=== PATIENT | male | born 1980 | race Caucasian/White ===

== ENCOUNTER → 2020-11-16 15:32 | Outpatient (CLI) | payer BC, SELFPAY ==
--- NOTE | 2020-11-16 15:36 | RAD_ITS ---
EXAM: XR LUMBOSACRAL SPINE, 2 OR 3 VIEWS : 1980 CLINICAL INDICATION: BACK PAIN TECHNIQUE: Frontal and lateral views of the lumbar spine and sacrum. This report was created using [facility] report [employer] technology. COMPARISON: None. FINDINGS: VERTEBRAE: Unremarkable. Preserved vertebral body height. No fracture. No spondylolisthesis. Preservation of the normal lumbar lordosis. No significant facet arthropathy. DISC SPACES: No acute findings. Disc spaces are maintained. GASTROINTESTINAL TRACT: Unremarkable as visualized. Included bowel gas pattern is non-obstructive. RAD/Lumbar Spine 2 or 3 Views IMPRESSION: No evidence of lumbar spinal fracture or spondylolisthesis. at 1609 Reported and signed by: Dillan Watkins MD Electronically Signed: Dillan Watkins MD at 16:08 EDT Tel , Service support ,
== END ==
PROVIDERS: PCP Family Medicine; Visit Provider Anesthesiology
DX: M51.16 Intervertebral disc disorders with radiculopathy, lumbar region (principal)
CPT/HCPCS: 72100

== ENCOUNTER → 2020-12-06 16:56 | Outpatient (CLI) | payer BC, SELFPAY ==
--- NOTE | 2020-12-06 17:20 | MRI_ITS ---
ACR Level 3 findings have been noted. An addendum which confirms receipt of the report will follow. STUDY: MRI LUMBAR SPINE WITHOUT CONTRAST REASON FOR EXAM: Male, 40 years old. BACK PAIN INTO R LEG, NUMBNESS R FOOT TECHNIQUE: Standardized fat and water weighted pulse sequences were obtained in the sagittal and axial planes. COMPARISON: Lumbar spine radiographs 11/16/2020. FINDINGS: T11-T12 and T12-L1: (Sagittal only). Normal endplates. Normal disc height, hydration and morphology. No ventral extradural defect. Normal central canal and bilateral intervertebral neural foramina. Normal lumbar lordosis. There is no substantial scoliosis. Normal conus medullaris that terminates at the mid L1 vertebral body level. L1-2: Normal endplates. Normal disc height, hydration and morphology. Normal bilateral facet joints. Normal central canal and bilateral lateral recesses. Normal bilateral intervertebral neural foramina. L2-3: Normal endplates. Normal disc height, hydration and morphology. Normal bilateral facet joints. Normal central canal and bilateral lateral recesses. Normal bilateral intervertebral neural foramina. L3-4: Normal endplates. Normal disc height, hydration and morphology. Normal bilateral facet joints. Normal central canal and bilateral lateral recesses. Normal bilateral intervertebral neural foramina. L4-5: Normal endplates. Normal disc height, hydration and morphology. Normal bilateral facet joints. Normal central canal and bilateral lateral recesses. Normal bilateral intervertebral neural foramina. L5-S1: Minimal MODIC type II degenerative vertebral marrow fatty changes underneath the left side of the vertebral endplates. Moderate disc space height narrowing. Large right sided posterior caudal extruded and sequestered disc fragment causing severe stenosis of the right lateral recess and posterior displacement of the right S1 nerve root sleeve. Normal left lateral recess. Moderate asymmetric central canal stenosis due to left lateral displacement of the thecal sac by the large posteriorly extruded and sequestered disc fragment. The transverse canal diameter of the thecal sac is 6 mm. Normal facet joints. Normal bilateral intervertebral neural foramina. Normal visualized sacral ala. Normal visualized paraspinous soft tissue structures. MRI/Spine Lumbar (Routine) IMPRESSION: Large right-sided L5-S1 posterior caudal disc extrusion and sequestration causing posterior displacement of the right S1 nerve root sleeve, severe stenosis of the right lateral recess and moderately pronounced central canal stenosis with left lateral displacement of the thecal sac. The transverse canal diameter of the displaced thecal sac is 6 mm. Electronically Signed: José Luis France MD at 12:06 EDT , Service support ,
== END ==
PROVIDERS: PCP Family Medicine; Visit Provider Anesthesiology
DX: M51.16 Intervertebral disc disorders with radiculopathy, lumbar region (principal); M48.061 Spinal stenosis, lumbar region without neurogenic claudication
CPT/HCPCS: 72148

== ENCOUNTER 2020-12-07 18:25 | Emergency (ER) | payer BC, SELFPAY ==
[2020-12-07 18:26] VITALS: BP 134/102; PULSE 76; RESP 18; TEMP 36.4; O2SAT 99; BMI 25.8
--- NOTE | 2020-12-07 19:34 | EX.ED.DYSGE1 ---
HPI History of Present Illness Chief Complaint: Back Informant: patient Narrative Narrative: Patient presents being referred in by pain management doctors after speaking with the nurse who coordinated with the physician for concerns that he may need emergent back surgery. He reports he woke up a month ago pain in his back with pain and numbness down his right leg to his toe. There is weakness with plantar flexion. He states his back pain has improved since. He saw pain management Dr. Canales 2 weeks ago, an MRI was ordered which was obtained yesterday at this facility. He denies any troubles with bowel or bladder. He is able to ambulate however feels weak with plantar flexion. He states he received a call stating immediately to go to the ED. He was following directions. Any past medical history or any back issues in the past. [facility] Medical History Sciatic nerve pain Home Medications diclofenac sodium 75 mg PO BID 12/07/20 [History Last Taken Unknown] methylprednisolone [Medrol (Kyle)] 4 mg PO .asdir #21 tab 12/07/20 [Rx Last Taken Unknown] tizanidine 4 mg PO TID 12/07/20 [History Last Taken Unknown] tramadol 50 mg PO DAILY 12/07/20 [History Last Taken Unknown] Allergy/AdvReac Type Severity Reaction Status Date / Time No Known Allergies Allergy Verified 12/07/20 18:37 Surgical History [place] teeth extracted Social History Smoking Status: Never smoker ROS [facility] ED Constitutional Constitutional ED: Denies chills, fever(s) or sweats Eyes Eyes: Denies change in vision ENT ENT ED: Denies dysphagia or sore throat Cardiovascular Cardiovascular: Denies chest pain, leg edema, palpitations or racing heartbeat Respiratory/Chest Respiratory/Chest: Denies cough, dyspnea or dyspnea on exertion Gastrointestinal Gastrointestinal: Denies abdominal pain, diarrhea, nausea or vomiting Genitourinary Genitourinary ED: Denies dysuria, hematuria or urinary frequency Musculoskeletal Musculoskeletal: Denies back pain, extremity pain or neck pain Integumentary Denies rash or wounds Neurologic Neurologic: Reports paresthesias and weakness; Denies headache(s) EXAM Physical Exam Const Vital Signs: 12/07/20 18:26 12/07/20 19:41 Temperature 97.6 F L Temperature Source Temporal Pulse Rate 76 67 Respiratory Rate 18 18 Blood Pressure 134/102 H 124/67 H Blood Pressure Mean 112 Pulse Ox 99 97 Positive well nourished and well developed General Appearance ED: well developed and NAD HEENT Reports moist mucous membranes normocephalic and atraumatic Eyes PERRL, EOMs intact bilaterally and conjunctivae normal General Eye ED: Yes normal appearance of both eyes Neck no lymphadenopathy and supple General: Negative for tenderness Chest Wall Chest: Negative for tenderness Resp normal respiratory effort and normal air movement Effort and Inspection: symmetric chest movement; Negative for respiratory distress Cardio regular rate, regular rhythm and no murmurs Peripheral Pulses: pulses 2+ throughout GI normal to inspection, nondistended, normoactive bowel sounds and non-tender Palpation: Negative for guarding or rebound tenderness present Back/Spine no CVA tenderness and no thoracic nor lumbar tenderness Extremity normal to inspection General Extremety ED: Negative for edema or tenderness General Extremity: Negative for edema Neuro oriented x3 Neuro Narrative: Weakness to the right plantar flexion 3 out of 5 compared to the left. Sensation intact. Pulses intact. Sensorium / Orientation: awake and alert Skin no rashes or lesions noted and no wounds MDM MDM MDM Narrative Medical decision making narrative: Patient with no cauda equina symptoms. I reviewed the MRI performed yesterday noted large herniation L5-S1 protruding down the right side. This is more concerning for a peripheral impingement. There is no central cord concerns. I spoke with pain doctor Dr. Rosenthal who was pest control chemical technician, stated he told nursing to assess for any cauda equina symptoms and if positive to go the ED for which patient denies. He recommended Solu-Medrol Dosepak, he will be given follow-up with Dr. Maldonado Suarez. He states he will call Dr. Suarez himself on Thursday and will help coordinate follow-up. This was relayed to the patient. He understands and agrees with plan. All questions were answered. Discharge Plan Triage Chief Complaint: Back ED Provider: Dylon Ortega Dx/Rx/DC Orders Clinical Impression: Lumbosacral radiculopathy at L5 Instructions: ED Herniated Intervertebral Disk Prescriptions: New methylprednisolone [Medrol (Kyle)] 4 mg tablets,dose pack 4 mg PO .asdir Qty: 21 RF: 0 No Action tizanidine 4 mg tablet 4 mg PO TID RF: 0 tramadol 50 mg tablet 50 mg PO DAILY RF: 0 diclofenac sodium 75 mg tablet,delayed release (DR/EC) 75 mg PO BID RF: 0 Primary Care Provider: You Maynard Referrals: You Maynard MD [Primary Care Provider] - Maldonado Suarez DO [STAFF PHYSICIAN] - 3-5 Days Activity Restrictions/Additional Instructions: Take steroids as directed. Dr. Gonzalez will coordinate follow-up with Dr. Suarez as an outpatient on Thursday. Disposition Disposition: Home, Self Care Discharge Date/Time: 12/07/20 19:41
[2020-12-07 19:41] VITALS: BP 124/67; PULSE 67; RESP 18; O2SAT 97
== END 2020-12-07 19:41 | disposition home or self-care (01) ==
PROVIDERS: Emergency Provider Emergency Medicine; PCP Family Medicine
DX: M54.17 Radiculopathy, lumbosacral region (principal); Z79.899 Other long term (current) drug therapy
CPT/HCPCS: 99282

== ENCOUNTER → 2021-01-17 11:46 | Outpatient (CLI) | payer BC, SELFPAY ==
--- NOTE | 2021-01-17 11:49 | EKG12_ITS ---
Test Reason : PRE-OP Blood Pressure : / mmHG Vent. Rate : 077 BPM Atrial Rate : 077 BPM P-R Int : 150 ms QRS Dur : 080 ms QT Int : 368 ms P-R-T Axes : 066 -21 020 degrees QTc Int : 416 ms Normal sinus rhythm with sinus arrhythmia Normal ECG Confirmed by BAKARI DEWEY, JEROME ([id number]), image editor ALEX BERNARD ([id number]) on 01/21/2021 9:44:18 AM Referred By: Oscar Gama Confirmed By:DAWIT VILLEGAS MD
--- NOTE | 2021-01-17 11:58 | RAD_ITS ---
STUDY: X-RAY CHEST REASON FOR EXAM: Male, 40 years old. PRE OP TECHNIQUE: PA and lateral views of the chest. COMPARISON: None. FINDINGS: The lungs are clear and expanded. There is no demonstrated pleural abnormality. Normal size heart. Normal mediastinum and carmelina. Normal visualized pulmonary arteries. Normal visualized aortic arch and descending thoracic aorta. Normal visualized thoracic spine. Normal visualized ribs, clavicles, and shoulders. There is no demonstrated abnormality of the visualized soft tissue structures of the upper abdomen. RAD/Chest PA and Lateral IMPRESSION: Normal x-ray examination of the chest. Electronically Signed: Juan Jin DO at 3:37 EST Tel , Service support ,
[2021-01-17 12:40] LABS: Absolute Neutrophil Count 7.3 X10^3/uL (2.0-7.7); Basophil# 0.07 X10^3/uL; Basophil% 0.7 % (0-1); Hematocrit 47.2 % (40-54); Hemoglobin 16.1 g/dL (13.0-16.5); Lymphocyte % 13.3 % (19-41); Mean Corp Hgb Conc 34.1 g/dL (32-36); Mean Corpuscular Hgb 31.9 pg (27.0-32.0); Mean Corpuscular Volume 93.7 fL (80-94); Mean Platelet Vol. 8.9 fl (6.2-12.0); Monocyte# 1.02 X10^3/uL; Monocyte% 10.4 % (0-10); NRBC Flagged by Analyzer 0 % (0-5); Neutrophil # 7.27 X10^3/uL (2.7-7.7); Neutrophil % 74.1 % (47-70); Platelet Count 340 K/mm3 (150-450); RBC Distribution Width CV 11.8 % (11.6-14.6); RBC Distribution Width SD 40.4 fl (35.1-43.9); Red Blood Count 5.04 M/mm3 (4.6-6.2); White Blood Count 9.8 K/mm3 (4.4-11.0)
[2021-01-17 12:46] LABS: International Normalized Ratio 0.9
[2021-01-17 13:11] LABS: Anion Gap 8 (5-15); BUN 11 mg/dL (7-18); BUN/Creat Ratio 10.8 RATIO (10-20); Chloride 103 mmol/L (98-107); Creatinine, Serum 1.02 mg/dL (0.70-1.30); EST Glomerular Filtration Rate 87 mL/min (>60); Est Glom Filt Rate - Afr Amer 105 mL/min (>60); Glucose 68 mg/dL (74-106); Potassium 3.9 mmol/L (3.5-5.1); Sodium Level 139 mmol/L (136-145)
== END ==
PROVIDERS: PCP Family Medicine; Referring Provider Orthopaedic Surgery; Visit Provider Orthopaedic Surgery
DX: Z01.810 Encounter for preprocedural cardiovascular examination (principal); Z01.818 Encounter for other preprocedural examination; Z01.811 Encounter for preprocedural respiratory examination
CPT/HCPCS: 36415; 71046; 80048; 85025; 85610; 85730; 93005